=== PATIENT | female | born 1990 | race Caucasian/White ===

== ENCOUNTER 2021-11-09 18:32 | Emergency (ER) | payer MEDICARE, MEDICAID, SELFPAY ==
--- NOTE | ~2021-11-09 | CT_ITS ---
EXAMINATION: CT LUMBAR SPINE WITHOUT CONTRAST CLINICAL INFORMATION: Lower back pain COMPARISON: None TECHNIQUE: No intravenous contrast was utilized. Multidetector helical imaging was performed through the lumbar spine. Coronal and sagittal reformatted images were created. This CT examination was performed using dose optimization techniques as appropriate, variously including the following: *Automated exposure control *Adjustment of mA and/or kV according to patient size (this includes techniques or standardized protocols for targeted exams where dose is matched to indication/reason for exam; i.e. extremities or head) *Use of iterative reconstruction technique DLP; 260 mGy-cm FINDINGS: There is anatomic alignment of the lumbar vertebral bodies and posterior elements. Vertebral body heights and intervertebral disc spaces are maintained. No acute fracture is seen. No paravertebral soft tissue abnormality identified. No significant central or foraminal stenosis is identified, though assessment for this is somewhat limited on CT. CT/CT lumbar spine wo con IMPRESSION: No acute osseous findings identified. If there is clinical concern for nerve root compression, this would be better assessed with MRI.
--- NOTE | ~2021-11-09 | CT_ITS ---
EXAMINATION: NONCONTRAST HEAD CT NONCONTRAST CERVICAL SPINE CT INDICATION INFORMATION: Fall, head strike, neck pain COMPARISON: None TECHNIQUE: Separate noncontrast CT examinations of the head and cervical spine were performed. Coronal head CT images and coronal and sagittal cervical spine images were created at the technologist workstation. DLP: 875 mGy-cm DOSE LOWERING TECHNIQUES: This CT examination was performed using dose optimization techniques as appropriate, variously including the following: - Automated exposure control - Adjustment of mA and/or kV according to patient size (this includes techniques or standardized protocols for targeted exams were dose is matched to indication/reason for exam; i.e. extremities or head) - Use of iterative reconstruction technique FINDINGS: Head: There is no evidence of acute intracranial hemorrhage or territorial infarction. No abnormal mass-effect or midline shift is seen. Alvarez to white matter differentiation is well preserved. No extra-axial fluid collections are identified. The ventricles are normal in size. There is no abnormal attenuation within the brain parenchyma. The osseous structures and soft tissues are normal. There is mild mucosal thickening of the left maxillary sinus. The mastoid air cells are well-aerated. Cervical spine: There is reversal of normal cervical lordosis. There is otherwise anatomic alignment of the vertebral bodies and posterior elements. Vertebral body heights are maintained. Intervertebral disc spaces are preserved. Osteophyte noted off the inferior endplate of C5. No evidence of acute fracture. No prevertebral soft tissue swelling. Visualized portions of the lung apices demonstrate mild emphysema. The thyroid gland is unremarkable. CT/CT cervical spine wo con IMPRESSION: 1. No acute intracranial findings. 2. Reversal of the normal cervical lordosis, which could be due to positioning or muscle spasm. No additional acute findings identified in the cervical spine.
[2021-11-09 18:43] VITALS: BP 110/80; BP 113/73; PULSE 90; PULSE 92; RESP 16; TEMP 36.7; O2SAT 96; O2SAT 98; BMI 20.7
[2021-11-09 22:14] VITALS: BP 96/43; PULSE 93; RESP 17; TEMP 36.8; O2SAT 98
--- NOTE | 2021-11-09 22:28 | PC.NURSE ---
provider into assess pt. pt is on c-spine collar. pt is able to answer questions. no Loc . Will continue to monitor.
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
[2021-11-09 23:36] LABS: Appearance Urine CLEAR; Color Urine YELLOW; Glucose Urine UA NEG (NEG); Leukocyte Esterase Urine NEG (NEG); Nitrite Urine NEG (NEG); PH 6.5 (5.0-8.0); Specific Gravity - Urine 1.025 (1.005-1.025); Urine Blood NEG (NEG); Urine Ketones NEG (NEG); Urine Protein NEG (NEG-TRACE)
[2021-11-09 23:38] LABS: UPreg QC Valid YES; Urine Pregnancy NEGATIVE (NEGATIVE)
[2021-11-09 23:48] LABS: Amphetamine Screen Urine Not Detected (Not Detect); Barbiturates, Urine Not Detected (Not Detect); Benzodiazepines Screen Urine Not Detected (Not Detect); Cannabinoid Screen Urine Not Detected (Not Detect); Cocaine Screen Urine Not Detected (Not Detect); Fentanyl, urine Not Detected (Not Detect); Opiate Screen Urine Not Detected (Not Detect); Phencyclidine Screen Urine Not Detected (Not Detect)
--- NOTE | 2021-11-10 00:01 | PC.NURSE ---
pt been sleeping, no sign of distress or pain. pt taken to CT Scan
[2021-11-10 00:10] LABS: Bacteria Urine 1+ /LPF; Mucus Urine 2+ /LPF; Squamous Epithelial Cell Urine 2+ /LPF; Trichomonas Urine NOTED
--- NOTE | 2021-11-10 00:15 | PC.NURSE ---
provider into assess pt. pt back from CT
[2021-11-10 01:06] VITALS: BP 92/53; PULSE 71; RESP 12; TEMP 37.1; O2SAT 97
--- NOTE | 2021-11-10 01:33 | PC.NURSE ---
provider into do rectal exam with this RN at the bedside. pt tolerate examination well.
--- NOTE | 2021-11-10 01:37 | PC.NURSE ---
Reviewed discharge instructions, pt verbalized understanding.
== END 2021-11-10 01:46 | disposition home or self-care (01) ==
PROVIDERS: Emergency Provider Emergency Medicine Emergency Medical Services
DX: R51.9 Headache, unspecified (principal); M54.2 Cervicalgia; M54.50 Low back pain, unspecified; Z59.00 Homelessness unspecified; Z79.899 Other long term (current) drug therapy
CPT/HCPCS: 70450; 72125; 72131; 80307; 81001; 81025; 99284